=== PATIENT | female | born 1955 | race Caucasian/White ===

== ENCOUNTER 2017-02-02 15:40 | Inpatient (IN) | payer MEDICAID ==
[~2017-02-02] VITALS: Ht 170.2 cm; Wt 121.6 kg
[~2017-02-02 15:40] MED LIST: ALBU8.5H8 INH; ASPI-1009 PO; ATOR20TA66 PO; CLOB50SO2; ESCI20TA38 PO; FENO160T13 PO; FLUO15CR TOP; GABA-338 PO; INSU100I25 SQ; LEVO150T PO; LISI-604 PO; NORepinephrine 1 mg/ml inj IV ONE; SITA1TAB2 PO
[2017-02-02] MEDS ORDERED: levoFLOXACIN-Levaquin 750MG/D5 150 ML IV ONE (15:45)
[2017-02-02] MEDS ORDERED: normal saline 1000ML IV soln IV ONE (15:45)
[2017-02-02] MEDS ORDERED: vancomycin/NS 1 GM ADD-VANTAGE 250 ML IV ONE ×2 (15:45→17:35)
[2017-02-02 16:54] LABS: BASOPHILS % (AUTO) 0 % (0-1); EOSINOPHILS % (AUTO) 0.1 % (0-6); HEMATOCRIT 45.8 % (35.0-45.0); HEMOGLOBIN 15.6 g/dl (12.0-16.0); LYMPHOCYTES # (AUTO) 1.2 X10'3 (1.1-4.8); LYMPHOCYTES % (AUTO) 4.4 % (21-51); MEAN CORPUSCULAR HGB CONC 33.9 % (33.0-36.5); MEAN CORPUSCULAR VOLUME 97.1 FL (78-98); MEAN PLATELET VOLUME 8.1 FL (7.4-10.4); MONOCYTES # (AUTO) 3.2 X10'3 (0-0.9); MONOCYTES % (AUTO) 11.4 % (2-12); NEUTROPHILS # (AUTO) 24.1 X10'3 (1.8-7.7); NEUTROPHILS % (AUTO) 84.1 % (42-75); PLATELET COUNT 288 X10'3 (140-440); RED BLOOD COUNT 4.72 X10'6 (4.20-5.60); RED CELL DISTRIBUTION WIDTH 13.8 % (11.5-14.5)
[2017-02-02 17:00] LABS: INR 1.1 INR; PARTIAL THROMBOPLASTIN TIME 27 SECONDS (22-32); PROTHROMBIN TIME 11.1 SECONDS (9.0-12.0)
[2017-02-02 17:01] LABS: WHITE BLOOD COUNT 28.6 X10'3 (4.5-11.0)
[2017-02-02 17:08] LABS: URINE AMPHETAMINE SCREEN POSITIVE (Neg); URINE BARBITUATE SCREEN NEGATIVE (Neg); URINE BENZODIAZEPINES SCREEN POSITIVE (Neg); URINE CANNABINOID SCREEN POSITIVE (Neg); URINE COCAINE SCREEN NEGATIVE (Neg); URINE METHADONE SCREEN NEGATIVE (Neg); URINE OPIATE SCREEN NEGATIVE (Neg); URINE PHENCYCLIDINE SCREEN NEGATIVE (Neg)
[2017-02-02 17:10] LABS: GLUCOSE, URINE NEGATIVE (Neg); KETONES,URINE TRACE mg/dl (Neg); LEUKOCYTE ESTERASE ,URINE LARGE (Neg); NITRITES, URINE POSITIVE (Neg); OCCULT BLOOD,URINE LARGE (Neg); PH,URINE >=9.0 (4.8-8.0); PROTEIN,URINE 100 mg/dl (Neg)
[2017-02-02 17:11] LABS: UA COLLECTION TYPE NON-SPECIFIED
[2017-02-02 17:17] LABS: BACTERIA,URINE 4+ /HPF (Neg); RBC,URINE TNTC /HPF (0-2); SQUAMOUS EPITHELIAL CELL,UR NONE SEEN /LPF (FEW)
[2017-02-02 17:19] LABS: CLARITY,URINE CLOUDY (Clear); COLOR,URINE Amber (Yellow)
[2017-02-02 17:20] LABS: ALANINE AMINOTRANSFERASE 34 U/L (12-78); ALBUMIN 2.9 G/DL (3.4-5.0); ALBUMIN/GLOBULIN RATIO 0.6 (1.1-1.5); ALKALINE PHOSPHATASE 47 IU/L (46-116); ANION GAP 14 (8-16); ASPARTATE AMINO TRANSFERASE 49 U/L (10-37); BILIRUBIN,TOTAL 0.9 MG/DL (0.1-1.0); BLOOD UREA NITROGEN 53 MG/DL (7-18); BUN/CREATININE RATIO 13.7 (6.6-38.0); CALCIUM 8.6 MG/DL (8.5-10.1); CHLORIDE 95 MMOL/L (99-107); CREATININE 3.86 MG/DL (0.40-0.90); GLUCOSE 223 MG/DL (70-104); MAGNESIUM 1.4 MG/DL (1.5-2.4); PHOSPHORUS 4.8 MG/DL (2.3-4.5); SODIUM 129 MMOL/L (135-145); TOTAL PROTEIN 7.7 G/DL (6.4-8.2); eGFR 12 ML/MIN
[2017-02-02 17:26] LABS: POTASSIUM 6.6 MMOL/L (3.5-5.1)
[2017-02-02] MEDS ORDERED: magnesium 2GM in 50ml NS 50 ML IV ONE (17:35)
[2017-02-02] MEDS: K, MAG and/or Phos replacement - Verify level? MC SCH (18:05)
[2017-02-02] MEDS ORDERED: MESSAGE TO PHARMACY PO ONE (18:05)
[2017-02-02] MEDS ORDERED: vancomycin/NS 1 GM ADD-VANTAGE 250 ML IV SCH (18:05)
[2017-02-02] MEDS ORDERED: magnesium hydroxide 30ml (MOM) UD suspension PO PRN (18:05)
[2017-02-02] MEDS ORDERED: dextrose ORAL solution 15 GM/59 ML bottle PO PRN ×2 (18:05)
[2017-02-02] MEDS ORDERED: glucagon, human recombinant 1mg kit SUBCUT PRN (18:05)
[2017-02-02] MEDS ORDERED: ondansetron/PF 4mg/2ml inj IV PRN (18:05)
[2017-02-02] MEDS ORDERED: sodium phosphate inj. 15 MMOL in dextrose 5%-water 150 ML IV PRN (18:05)
[2017-02-02] MEDS ORDERED: sodium phosphate inj. 30 MMOL in dextrose 5%-water 250 ML IV PRN (18:05)
[2017-02-02] MEDS ORDERED: potassium Cl 20 mEq SR tablet PO PRN (18:05)
[2017-02-02] MEDS ORDERED: magnesium 4gm in 100ml NS 100 ML IV PRN (18:05)
[2017-02-02] MEDS ORDERED: dextrose 50%-water 50ml dispensing syringe IV PRN ×2 (18:05)
[2017-02-02] MEDS ORDERED: magnesium 2GM in 50ml NS 50 ML IV PRN (18:05)
[2017-02-02] MEDS ORDERED: Neutra Phos packet PO PRN (18:05)
[2017-02-02] MEDS ORDERED: magnesium Cl slow-release 64mg tablet PO PRN (18:05)
[2017-02-02 18:51] LABS: HEMOGLOBIN A1C 7.2 % (4.5-6.2)
[2017-02-02] MEDS ORDERED: NORepinephrine 8mg/ 250ml NS 250 ML IV SCH (18:55)
[2017-02-02] MEDS ORDERED: vancomycin/NS 1 GM ADD-VANTAGE 250 ML X 1 DOSE IV ONE (19:00)
[2017-02-02] MEDS: NORepinephrine 8mg/ 250ml NS 250 ML IV SCH (19:04)
[2017-02-02] MEDS: piperacillin/tazobactam inj. 2.25 GM in normal saline 50ml IV IV SCH ×2 (19:14→23:45)
[2017-02-02] MEDS: sodium bicarbonate (8.4%) inj. 100 MEQ in dextrose 5%-water 1,000 ML IV SCH (19:19)
[2017-02-02 20:00] VITALS: BP 105/50
[2017-02-02] MEDS ORDERED: Insulin Detemir pen SQ SCH (20:00)
[2017-02-02 21:00] VITALS: BP 101/54
[2017-02-02] MEDS: Insulin Detemir pen SQ SCH (21:00)
[2017-02-02] MEDS: atorvastatin 20mg tablet PO SCH (21:00)
[2017-02-02 21:21] LABS: OXYGEN SATURATION (MIXED VEN) 79.8 % (60-80); PO2 MIXED VENOUS (TEMP COR) 53.3 mmHg (35-46)
[2017-02-02 21:36] LABS: ABG BASE EXCESS -9.5 mmol/L (-2.0-3.0); ABG HCO3 17.5 mmol/L (22.0-26.0); ABG OXYGEN SATURATION 94.8 % (95-98); ABG PCO2 (T) 43.8 mmHg (32.0-45.0); ABG PH (T) 7.225 (7.350-7.450); ABG PO2 (T) 90.9 mmHg (83-108); FCOHb 0.7 % (0.5-1.5); FLOW 6 L/min; FMetHb 0.3 % (0.3-1.12); FO2Hb 93.9 % (94-100); PATIENT TEMPERATURE 38.1; RESPIRATORY RATE (OBSERVED) 16 b/min; TOTAL HEMOGLOBIN 13.7 G/dl (12.0-16.0)
[2017-02-02 22:00] VITALS: BP 100/57
[2017-02-02 23:00] VITALS: BP 97/51
[2017-02-02] MEDS ORDERED: albuterol 2.5 MG/3 ML nebule NEB PRN (23:50)
[2017-02-03] VITALS (23 sets, daily range): BP systolic 84–119; BP diastolic 51–63
[2017-02-03] MEDS ORDERED: piperacillin/tazo 3.375gm/50ml 50 ML IV SCH
[2017-02-03] MEDS: insulin Lispro (HumaLOG) vial - multi-dose SQ SCH ×5 (01:49→21:16)
[2017-02-03] MEDS ORDERED: acetaminophen 650mg rectal suppository RC PRN (02:05)
[2017-02-03] MEDS: sodium bicarbonate (8.4%) inj. 100 MEQ in dextrose 5%-water 1,000 ML IV SCH ×4 (02:24→23:16)
[2017-02-03 03:48] LABS: BASOPHILS # (AUTO) 0.1 X10'3 (0-0.2); BASOPHILS % (AUTO) 0.3 % (0-1); EOSINOPHILS % (AUTO) 0.2 % (0-6); HEMATOCRIT 40.6 % (35.0-45.0); HEMOGLOBIN 13.6 g/dl (12.0-16.0); LYMPHOCYTES # (AUTO) 0.8 X10'3 (1.1-4.8); LYMPHOCYTES % (AUTO) 3.7 % (21-51); MEAN CORPUSCULAR HEMOGLOBIN 33.4 PG (27.0-31.0); MEAN CORPUSCULAR HGB CONC 33.4 % (33.0-36.5); MEAN PLATELET VOLUME 8.1 FL (7.4-10.4); MONOCYTES # (AUTO) 0.4 X10'3 (0-0.9); MONOCYTES % (AUTO) 1.8 % (2-12); NEUTROPHILS # (AUTO) 21.4 X10'3 (1.8-7.7); PLATELET COUNT 210 X10'3 (140-440); RED BLOOD COUNT 4.06 X10'6 (4.20-5.60); RED CELL DISTRIBUTION WIDTH 13.6 % (11.5-14.5); WHITE BLOOD COUNT 22.7 X10'3 (4.5-11.0)
[2017-02-03 04:00] LABS: INR 1.1 INR; PARTIAL THROMBOPLASTIN TIME 28 SECONDS (22-32); PROTHROMBIN TIME 11.7 SECONDS (9.0-12.0)
[2017-02-03 04:08] LABS: ALANINE AMINOTRANSFERASE 27 U/L (12-78); ALBUMIN 2.2 G/DL (3.4-5.0); ALBUMIN/GLOBULIN RATIO 0.5 (1.1-1.5); ALKALINE PHOSPHATASE 37 IU/L (46-116); ANION GAP 12 (8-16); ASPARTATE AMINO TRANSFERASE 49 U/L (10-37); BILIRUBIN,TOTAL 0.9 MG/DL (0.1-1.0); BLOOD UREA NITROGEN 47 MG/DL (7-18); CALCIUM 7.8 MG/DL (8.5-10.1); CHLORIDE 97 MMOL/L (99-107); CREATININE 2.93 MG/DL (0.40-0.90); GLUCOSE 305 MG/DL (70-104); POTASSIUM 4.1 MMOL/L (3.5-5.1); SODIUM 130 MMOL/L (135-145); TOTAL CARBON DIOXIDE 20.8 MMOL/L (24-32); TOTAL PROTEIN 6.4 G/DL (6.4-8.2); eGFR 16 ML/MIN
[2017-02-03 04:13] LABS: MAGNESIUM 1.7 MG/DL (1.5-2.4); PHOSPHORUS 3.9 MG/DL (2.3-4.5)
[2017-02-03 04:53] LABS: PLATELET ESTIMATE NORMAL; TOTAL CELLS COUNTED 100
[2017-02-03] MEDS: K, MAG and/or Phos replacement - Verify level? MC SCH (08:00)
[2017-02-03] MEDS: levoTHYROXINE 75mcg tablet PO SCH (08:04)
[2017-02-03] MEDS: lactobacillus rhamnosus 10,000 MMU CELLS/CAPSULE PO SCH ×2 (08:04→16:34)
[2017-02-03] MEDS: piperacillin/tazobactam inj. 2.25 GM in normal saline 50ml IV IV SCH (08:05)
[2017-02-03] MEDS: gabapentin 300mg capsule PO SCH ×2 (08:05→13:31)
[2017-02-03] MEDS: pantoprazole 40mg Tablet.DR PO SCH (08:05)
[2017-02-03] MEDS: citalopram 20mg tablet PO SCH (08:05)
[2017-02-03] MEDS: aspirin 81mg tablet.DR PO SCH (08:05)
[2017-02-03] MEDS: fenofibrate 145mg tablet PO SCH (08:06)
[2017-02-03] MEDS ORDERED: INSU100I25 SQ (08:55)
[2017-02-03] MEDS: acetaminophen 325mg tablet PO PRN ×3 (09:17→21:09)
[2017-02-03] MEDS: nystatin 500,000 unit/5ML UD oral suspension PO SCH ×2 (13:31→19:34)
[2017-02-03] MEDS: piperacillin-tazo 2.25gm/50ml 50 ML IV SCH ×2 (14:18→19:36)
[2017-02-03] MEDS: NORepinephrine 8mg/ 250ml NS 250 ML IV SCH (16:30)
[2017-02-03] MEDS: atorvastatin 20mg tablet PO SCH (19:34)
[2017-02-03] MEDS: Insulin Detemir pen SQ SCH (19:46)
[2017-02-03] MEDS: diatr meglu/diatrizoate 30ml oral sol.-(3 dose) bottle PO SCH (22:15)
[2017-02-04] VITALS (24 sets, daily range): BP systolic 91–126; BP diastolic 48–73
[2017-02-04 02:49] LABS: BASOPHILS # (AUTO) 0.1 X10'3 (0-0.2); BASOPHILS % (AUTO) 0.4 % (0-1); EOSINOPHILS % (AUTO) 0 % (0-6); HEMATOCRIT 35.8 % (35.0-45.0); HEMOGLOBIN 11.9 g/dl (12.0-16.0); LYMPHOCYTES # (AUTO) 1.2 X10'3 (1.1-4.8); LYMPHOCYTES % (AUTO) 7.4 % (21-51); MEAN CORPUSCULAR HGB CONC 33.2 % (33.0-36.5); MEAN CORPUSCULAR VOLUME 99.5 FL (78-98); MEAN PLATELET VOLUME 8.5 FL (7.4-10.4); MONOCYTES # (AUTO) 0.2 X10'3 (0-0.9); MONOCYTES % (AUTO) 0.9 % (2-12); NEUTROPHILS # (AUTO) 15.2 X10'3 (1.8-7.7); NEUTROPHILS % (AUTO) 91.3 % (42-75); PLATELET COUNT 157 X10'3 (140-440); RED CELL DISTRIBUTION WIDTH 14.1 % (11.5-14.5); WHITE BLOOD COUNT 16.7 X10'3 (4.5-11.0)
[2017-02-04] MEDS: piperacillin-tazo 2.25gm/50ml 50 ML IV SCH ×4 (03:00→20:11)
[2017-02-04 03:08] LABS: INR 1.2 INR; PARTIAL THROMBOPLASTIN TIME 31 SECONDS (22-32); PROTHROMBIN TIME 12.8 SECONDS (9.0-12.0)
[2017-02-04 03:13] LABS: ALANINE AMINOTRANSFERASE 20 U/L (12-78); ALBUMIN 1.8 G/DL (3.4-5.0); ALBUMIN/GLOBULIN RATIO 0.5 (1.1-1.5); ALKALINE PHOSPHATASE 55 IU/L (46-116); ANION GAP 9 (8-16); ASPARTATE AMINO TRANSFERASE 35 U/L (10-37); BLOOD UREA NITROGEN 43 MG/DL (7-18); BUN/CREATININE RATIO 18.9 (6.6-38.0); CALCIUM 7.7 MG/DL (8.5-10.1); CHLORIDE 92 MMOL/L (99-107); CREATININE 2.27 MG/DL (0.40-0.90); GLUCOSE 263 MG/DL (70-104); MAGNESIUM 1.5 MG/DL (1.5-2.4); PHOSPHORUS 3.6 MG/DL (2.3-4.5); POTASSIUM 3.3 MMOL/L (3.5-5.1); SODIUM 129 MMOL/L (135-145); TOTAL CARBON DIOXIDE 27.6 MMOL/L (24-32); TOTAL PROTEIN 5.7 G/DL (6.4-8.2); eGFR 22 ML/MIN
[2017-02-04] MEDS: acetaminophen 325mg tablet PO PRN ×3 (03:56→22:17)
[2017-02-04] MEDS: potassium Cl 20 mEq SR tablet PO PRN ×3 (04:42→16:59)
[2017-02-04] MEDS: diatr meglu/diatrizoate 30ml oral sol.-(3 dose) bottle PO SCH ×2 (07:14→10:10)
[2017-02-04] MEDS: sodium bicarbonate (8.4%) inj. 100 MEQ in dextrose 5%-water 1,000 ML IV SCH ×2 (07:14→14:01)
[2017-02-04] MEDS: nystatin 500,000 unit/5ML UD oral suspension PO SCH ×3 (08:00→20:14)
[2017-02-04] MEDS: K, MAG and/or Phos replacement - Verify level? MC SCH (08:00)
[2017-02-04] MEDS: NORepinephrine 8mg/ 250ml NS 250 ML IV SCH (08:26)
[2017-02-04] MEDS: insulin Lispro (HumaLOG) vial - multi-dose SQ SCH ×3 (09:21→20:17)
[2017-02-04] MEDS: lactobacillus rhamnosus 10,000 MMU CELLS/CAPSULE PO SCH ×2 (11:04→16:59)
[2017-02-04] MEDS: levoTHYROXINE 75mcg tablet PO SCH (11:04)
[2017-02-04] MEDS: aspirin 81mg tablet.DR PO SCH (11:05)
[2017-02-04] MEDS: fenofibrate 145mg tablet PO SCH (11:05)
[2017-02-04] MEDS: pantoprazole 40mg Tablet.DR PO SCH (11:05)
[2017-02-04] MEDS: gabapentin 300mg capsule PO SCH (11:05)
[2017-02-04] MEDS: citalopram 20mg tablet PO SCH (11:05)
[2017-02-04 12:45] LABS: CREATININE,URINE RANDOM 33.7 MG/DL
[2017-02-04 13:00] LABS: CLARITY,URINE SLIGHTLY CLOUDY (Clear); UA COLLECTION TYPE FOLEY CATH
[2017-02-04 13:08] LABS: GLUCOSE, URINE 500 mg/dl (Neg); KETONES,URINE NEGATIVE (Neg); LEUKOCYTE ESTERASE ,URINE MODERATE (Neg); NITRITES, URINE NEGATIVE (Neg); OCCULT BLOOD,URINE LARGE (Neg); PROTEIN,URINE 100 mg/dl (Neg); UROBILINOGEN,URINE >=8.0 E.U/dL (0.2-1.0)
[2017-02-04 13:10] LABS: COLOR,URINE DARK YELLOW (Yellow)
[2017-02-04 13:12] LABS: RBC,URINE TNTC /HPF (0-2); WBC CLUMPS,URINE FEW /HPF (NEGATIVE); WBC,URINE TNTC /HPF (0-4)
[2017-02-04 13:13] LABS: BACTERIA,URINE 2+ /HPF (Neg); SQUAMOUS EPITHELIAL CELL,UR FEW /LPF (FEW)
[2017-02-04 13:55] LABS: UA EOSINOPHILS NO EOS /HPF
[2017-02-04] MEDS: normal saline 1000ml 1,000 ML IV SCH (16:00)
[2017-02-04] MEDS: emollient combination-Eucerin 250 ML LOTION TP SCH (17:04)
[2017-02-04] MEDS: atorvastatin 20mg tablet PO SCH (20:11)
[2017-02-04] MEDS: Insulin Detemir pen SQ SCH (20:18)
[2017-02-05] VITALS (24 sets, daily range): BP systolic 74–114; BP diastolic 48–69
[2017-02-05] MEDS: normal saline 1000ml 1,000 ML IV SCH ×3 (02:10→22:14)
[2017-02-05] MEDS: piperacillin-tazo 2.25gm/50ml 50 ML IV SCH ×4 (02:10→19:03)
[2017-02-05] MEDS ORDERED: HYDROcodone/acetaminophen 5mg/325mg tablet PO PRN (02:40)
[2017-02-05 03:34] LABS: BASOPHILS # (AUTO) 0.1 X10'3 (0-0.2); BASOPHILS % (AUTO) 0.5 % (0-1); EOSINOPHILS # (AUTO) 0.1 X10'3 (0-0.9); EOSINOPHILS % (AUTO) 0.7 % (0-6); HEMATOCRIT 32.5 % (35.0-45.0); HEMOGLOBIN 11.1 g/dl (12.0-16.0); LYMPHOCYTES # (AUTO) 1.4 X10'3 (1.1-4.8); MEAN CORPUSCULAR HEMOGLOBIN 33.1 PG (27.0-31.0); MEAN CORPUSCULAR VOLUME 97.3 FL (78-98); MEAN PLATELET VOLUME 8.5 FL (7.4-10.4); MONOCYTES # (AUTO) 0.3 X10'3 (0-0.9); MONOCYTES % (AUTO) 2.4 % (2-12); NEUTROPHILS # (AUTO) 9.7 X10'3 (1.8-7.7); NEUTROPHILS % (AUTO) 84.4 % (42-75); PLATELET COUNT 130 X10'3 (140-440); RED BLOOD COUNT 3.34 X10'6 (4.20-5.60); WHITE BLOOD COUNT 11.5 X10'3 (4.5-11.0)
[2017-02-05 03:48] LABS: INR 1.1 INR; PARTIAL THROMBOPLASTIN TIME 32 SECONDS (22-32); PROTHROMBIN TIME 11.8 SECONDS (9.0-12.0)
[2017-02-05 04:00] LABS: ALANINE AMINOTRANSFERASE 18 U/L (12-78); ALBUMIN 1.5 G/DL (3.4-5.0); ALBUMIN/GLOBULIN RATIO 0.4 (1.1-1.5); ALKALINE PHOSPHATASE 62 IU/L (46-116); ANION GAP 5 (8-16); ASPARTATE AMINO TRANSFERASE 47 U/L (10-37); BILIRUBIN,TOTAL 1.5 MG/DL (0.1-1.0); BLOOD UREA NITROGEN 35 MG/DL (7-18); BUN/CREATININE RATIO 21.7 (6.6-38.0); CALCIUM 7.4 MG/DL (8.5-10.1); CHLORIDE 92 MMOL/L (99-107); CREATININE 1.61 MG/DL (0.40-0.90); GLUCOSE 119 MG/DL (70-104); MAGNESIUM 1.3 MG/DL (1.5-2.4); POTASSIUM 3.8 MMOL/L (3.5-5.1); SODIUM 128 MMOL/L (135-145); TOTAL CARBON DIOXIDE 31.2 MMOL/L (24-32); TOTAL PROTEIN 5.3 G/DL (6.4-8.2); eGFR 33 ML/MIN
[2017-02-05] MEDS: nystatin 500,000 unit/5ML UD oral suspension PO SCH ×3 (08:00→20:30)
[2017-02-05] MEDS: K, MAG and/or Phos replacement - Verify level? MC SCH (08:00)
[2017-02-05] MEDS: fenofibrate 145mg tablet PO SCH (08:13)
[2017-02-05] MEDS: lactobacillus rhamnosus 10,000 MMU CELLS/CAPSULE PO SCH ×2 (08:13→16:56)
[2017-02-05] MEDS: pantoprazole 40mg Tablet.DR PO SCH (08:13)
[2017-02-05] MEDS: aspirin 81mg tablet.DR PO SCH (08:13)
[2017-02-05] MEDS: gabapentin 300mg capsule PO SCH (08:14)
[2017-02-05] MEDS: citalopram 20mg tablet PO SCH (08:14)
[2017-02-05] MEDS: emollient combination-Eucerin 250 ML LOTION TP SCH (08:15)
[2017-02-05] MEDS: levoTHYROXINE 75mcg tablet PO SCH (08:19)
[2017-02-05] MEDS: insulin Lispro (HumaLOG) vial - multi-dose SQ SCH ×3 (09:17→18:57)
[2017-02-05] MEDS: NORepinephrine 8mg/ 250ml NS 250 ML IV SCH (16:57)
[2017-02-05] MEDS: atorvastatin 20mg tablet PO SCH (20:30)
[2017-02-05] MEDS: Insulin Detemir pen SQ SCH (20:33)
[2017-02-06] VITALS (23 sets, daily range): BP systolic 95–140; BP diastolic 58–80
[2017-02-06] MEDS: piperacillin-tazo 2.25gm/50ml 50 ML IV SCH ×2 (01:09→07:29)
[2017-02-06] MEDS: acetaminophen 325mg tablet PO PRN (01:09)
[2017-02-06 02:20] LABS: BASOPHILS % (AUTO) 0.1 % (0-1); EOSINOPHILS % (AUTO) 0.4 % (0-6); HEMATOCRIT 32.3 % (35.0-45.0); HEMOGLOBIN 10.9 g/dl (12.0-16.0); LYMPHOCYTES # (AUTO) 0.8 X10'3 (1.1-4.8); LYMPHOCYTES % (AUTO) 10.8 % (21-51); MEAN CORPUSCULAR HEMOGLOBIN 32.8 PG (27.0-31.0); MEAN CORPUSCULAR HGB CONC 33.9 % (33.0-36.5); MEAN CORPUSCULAR VOLUME 96.8 FL (78-98); MEAN PLATELET VOLUME 7.9 FL (7.4-10.4); MONOCYTES # (AUTO) 0.5 X10'3 (0-0.9); MONOCYTES % (AUTO) 6.1 % (2-12); NEUTROPHILS # (AUTO) 6.2 X10'3 (1.8-7.7); NEUTROPHILS % (AUTO) 82.6 % (42-75); PLATELET COUNT 159 X10'3 (140-440); RED BLOOD COUNT 3.34 X10'6 (4.20-5.60); RED CELL DISTRIBUTION WIDTH 14.2 % (11.5-14.5); WHITE BLOOD COUNT 7.5 X10'3 (4.5-11.0)
[2017-02-06 02:33] LABS: INR 1.1 INR; PARTIAL THROMBOPLASTIN TIME 30 SECONDS (22-32); PROTHROMBIN TIME 11.6 SECONDS (9.0-12.0)
[2017-02-06 02:35] LABS: ALANINE AMINOTRANSFERASE 21 U/L (12-78); ALBUMIN 1.5 G/DL (3.4-5.0); ALBUMIN/GLOBULIN RATIO 0.4 (1.1-1.5); ALKALINE PHOSPHATASE 81 IU/L (46-116); ANION GAP 8 (8-16); ASPARTATE AMINO TRANSFERASE 45 U/L (10-37); BILIRUBIN,TOTAL 2.5 MG/DL (0.1-1.0); BLOOD UREA NITROGEN 29 MG/DL (7-18); BUN/CREATININE RATIO 22.1 (6.6-38.0); CALCIUM 7.8 MG/DL (8.5-10.1); CHLORIDE 92 MMOL/L (99-107); CREATININE 1.31 MG/DL (0.40-0.90); GLUCOSE 154 MG/DL (70-104); MAGNESIUM 1.5 MG/DL (1.5-2.4); PHOSPHORUS 2.8 MG/DL (2.3-4.5); POTASSIUM 3.7 MMOL/L (3.5-5.1); SODIUM 129 MMOL/L (135-145); TOTAL CARBON DIOXIDE 29.4 MMOL/L (24-32); TOTAL PROTEIN 5.7 G/DL (6.4-8.2); eGFR 41 ML/MIN
[2017-02-06] MEDS: K, MAG and/or Phos replacement - Verify level? MC SCH (07:06)
[2017-02-06] MEDS: pantoprazole 40mg Tablet.DR PO SCH (07:29)
[2017-02-06] MEDS: lactobacillus rhamnosus 10,000 MMU CELLS/CAPSULE PO SCH ×2 (07:29→17:27)
[2017-02-06] MEDS: nystatin 500,000 unit/5ML UD oral suspension PO SCH ×3 (07:29→20:18)
[2017-02-06] MEDS: gabapentin 300mg capsule PO SCH (07:29)
[2017-02-06] MEDS: levoTHYROXINE 75mcg tablet PO SCH (07:30)
[2017-02-06] MEDS: citalopram 20mg tablet PO SCH (07:30)
[2017-02-06] MEDS: aspirin 81mg tablet.DR PO SCH (07:30)
[2017-02-06] MEDS: emollient combination-Eucerin 250 ML LOTION TP SCH (07:31)
[2017-02-06] MEDS: normal saline 1000ml 1,000 ML IV SCH (07:33)
[2017-02-06] MEDS: fenofibrate 145mg tablet PO SCH (08:27)
[2017-02-06] MEDS: insulin Lispro (HumaLOG) vial - multi-dose SQ SCH ×3 (08:39→19:39)
[2017-02-06] MEDS ORDERED: bisacodyl 10mg suppository rectal RC PRN (10:25)
[2017-02-06] MEDS: sodium chloride 0.45% 1,000 ML IV SCH ×2 (10:35→19:36)
[2017-02-06] MEDS ORDERED: methylnaltrexone br 12mg/0.6ml inj***SubQ only SQ ONE (12:55)
[2017-02-06] MEDS: piperacillin/tazo 3.375gm/50ml 50 ML IV SCH ×2 (13:07→19:35)
[2017-02-06] MEDS: NUT.TX.GLUC.INTOLER,LAC-FR,REG (BOOST GLUCOSE CONTROL) 237 ML PO SCH ×2 (13:09→18:00)
[2017-02-06] MEDS ORDERED: VANCOMYCIN LEVEL IV ONE (17:30)
[2017-02-06] MEDS: polyethylene glycol 3350 17gm powd pack PO SCH (20:18)
[2017-02-06] MEDS: atorvastatin 20mg tablet PO SCH (20:18)
[2017-02-06] MEDS: Insulin Detemir pen SQ SCH (21:00)
[2017-02-07] VITALS (24 sets, daily range): BP systolic 104–134; BP diastolic 56–71
[2017-02-07] MEDS: piperacillin/tazo 3.375gm/50ml 50 ML IV SCH ×4 (01:29→20:15)
[2017-02-07] MEDS: sodium chloride 0.45% 1,000 ML IV SCH ×2 (01:30→10:06)
[2017-02-07 02:26] LABS: BASOPHILS % (AUTO) 0.1 % (0-1); EOSINOPHILS # (AUTO) 0.2 X10'3 (0-0.9); LYMPHOCYTES # (AUTO) 1.1 X10'3 (1.1-4.8); LYMPHOCYTES % (AUTO) 14.4 % (21-51); MEAN CORPUSCULAR HEMOGLOBIN 32.3 PG (27.0-31.0); MEAN CORPUSCULAR HGB CONC 33.4 % (33.0-36.5); MEAN CORPUSCULAR VOLUME 96.8 FL (78-98); MEAN PLATELET VOLUME 8.1 FL (7.4-10.4); MONOCYTES # (AUTO) 0.8 X10'3 (0-0.9); MONOCYTES % (AUTO) 10.6 % (2-12); NEUTROPHILS # (AUTO) 5.8 X10'3 (1.8-7.7); NEUTROPHILS % (AUTO) 72.9 % (42-75); PLATELET COUNT 172 X10'3 (140-440); RED BLOOD COUNT 3.41 X10'6 (4.20-5.60); WHITE BLOOD COUNT 7.9 X10'3 (4.5-11.0)
[2017-02-07 02:39] LABS: INR 1.2 INR; PARTIAL THROMBOPLASTIN TIME 29 SECONDS (22-32); PROTHROMBIN TIME 12.4 SECONDS (9.0-12.0)
[2017-02-07 02:42] LABS: ALANINE AMINOTRANSFERASE 18 U/L (12-78); ALBUMIN 1.4 G/DL (3.4-5.0); ALBUMIN/GLOBULIN RATIO 0.3 (1.1-1.5); ALKALINE PHOSPHATASE 92 IU/L (46-116); ANION GAP 4 (8-16); ASPARTATE AMINO TRANSFERASE 37 U/L (10-37); BILIRUBIN,TOTAL 3.1 MG/DL (0.1-1.0); BLOOD UREA NITROGEN 20 MG/DL (7-18); BUN/CREATININE RATIO 17.7 (6.6-38.0); CHLORIDE 94 MMOL/L (99-107); CREATININE 1.13 MG/DL (0.40-0.90); GLUCOSE 165 MG/DL (70-104); MAGNESIUM 1.5 MG/DL (1.5-2.4); PHOSPHORUS 2.4 MG/DL (2.3-4.5); POTASSIUM 3.6 MMOL/L (3.5-5.1); SODIUM 127 MMOL/L (135-145); TOTAL CARBON DIOXIDE 29.1 MMOL/L (24-32); TOTAL PROTEIN 5.5 G/DL (6.4-8.2); eGFR 49 ML/MIN
[2017-02-07] MEDS: NORepinephrine 8mg/ 250ml NS 250 ML IV SCH (02:56)
[2017-02-07] MEDS: K, MAG and/or Phos replacement - Verify level? MC SCH (07:16)
[2017-02-07] MEDS: gabapentin 300mg capsule PO SCH (07:47)
[2017-02-07] MEDS: aspirin 81mg tablet.DR PO SCH (07:47)
[2017-02-07] MEDS: citalopram 20mg tablet PO SCH (07:47)
[2017-02-07] MEDS: nystatin 500,000 unit/5ML UD oral suspension PO SCH ×3 (07:47→20:15)
[2017-02-07] MEDS: lactobacillus rhamnosus 10,000 MMU CELLS/CAPSULE PO SCH ×2 (07:47→16:57)
[2017-02-07] MEDS: pantoprazole 40mg Tablet.DR PO SCH (07:47)
[2017-02-07] MEDS: levoTHYROXINE 75mcg tablet PO SCH (07:47)
[2017-02-07] MEDS: fenofibrate 145mg tablet PO SCH (07:47)
[2017-02-07] MEDS: emollient combination-Eucerin 250 ML LOTION TP SCH (07:48)
[2017-02-07] MEDS: NUT.TX.GLUC.INTOLER,LAC-FR,REG (BOOST GLUCOSE CONTROL) 237 ML PO SCH ×3 (08:00→18:00)
[2017-02-07] MEDS: insulin Lispro (HumaLOG) vial - multi-dose SQ SCH ×3 (09:14→20:22)
[2017-02-07] MEDS: normal saline 1000ml 1,000 ML IV SCH (13:20)
[2017-02-07] MEDS: atorvastatin 20mg tablet PO SCH (20:15)
[2017-02-07] MEDS: polyethylene glycol 3350 17gm powd pack PO SCH (20:15)
[2017-02-07] MEDS: Insulin Detemir pen SQ SCH (20:22)
[2017-02-08] VITALS (11 sets, daily range): BP systolic 102–131; BP diastolic 53–75
[2017-02-08] MEDS: normal saline 1000ml 1,000 ML IV SCH ×3 (00:02→19:10)
[2017-02-08] MEDS: piperacillin/tazo 3.375gm/50ml 50 ML IV SCH ×4 (02:07→20:31)
[2017-02-08 02:32] LABS: BASOPHILS % (AUTO) 0.4 % (0-1); EOSINOPHILS # (AUTO) 0.2 X10'3 (0-0.9); EOSINOPHILS % (AUTO) 2.3 % (0-6); HEMATOCRIT 32.6 % (35.0-45.0); HEMOGLOBIN 10.9 g/dl (12.0-16.0); LYMPHOCYTES # (AUTO) 1.3 X10'3 (1.1-4.8); LYMPHOCYTES % (AUTO) 14.1 % (21-51); MEAN CORPUSCULAR HEMOGLOBIN 32.7 PG (27.0-31.0); MEAN CORPUSCULAR HGB CONC 33.6 % (33.0-36.5); MEAN CORPUSCULAR VOLUME 97.3 FL (78-98); MEAN PLATELET VOLUME 7.8 FL (7.4-10.4); MONOCYTES # (AUTO) 1.1 X10'3 (0-0.9); MONOCYTES % (AUTO) 11.2 % (2-12); NEUTROPHILS # (AUTO) 6.7 X10'3 (1.8-7.7); PLATELET COUNT 196 X10'3 (140-440); RED BLOOD COUNT 3.35 X10'6 (4.20-5.60); RED CELL DISTRIBUTION WIDTH 13.9 % (11.5-14.5); WHITE BLOOD COUNT 9.4 X10'3 (4.5-11.0)
[2017-02-08 02:45] LABS: INR 1.2 INR; PARTIAL THROMBOPLASTIN TIME 27 SECONDS (22-32); PROTHROMBIN TIME 12.6 SECONDS (9.0-12.0)
[2017-02-08 02:57] LABS: ALANINE AMINOTRANSFERASE 19 U/L (12-78); ALBUMIN 1.4 G/DL (3.4-5.0); ALBUMIN/GLOBULIN RATIO 0.3 (1.1-1.5); ALKALINE PHOSPHATASE 96 IU/L (46-116); ANION GAP 4 (8-16); ASPARTATE AMINO TRANSFERASE 43 U/L (10-37); BILIRUBIN,TOTAL 2.7 MG/DL (0.1-1.0); BLOOD UREA NITROGEN 18 MG/DL (7-18); BUN/CREATININE RATIO 18.8 (6.6-38.0); CALCIUM 8.1 MG/DL (8.5-10.1); CHLORIDE 96 MMOL/L (99-107); CREATININE 0.96 MG/DL (0.40-0.90); GLUCOSE 108 MG/DL (70-104); MAGNESIUM 1.4 MG/DL (1.5-2.4); PHOSPHORUS 2.2 MG/DL (2.3-4.5); POTASSIUM 3.7 MMOL/L (3.5-5.1); SODIUM 130 MMOL/L (135-145); TOTAL CARBON DIOXIDE 29.7 MMOL/L (24-32); TOTAL PROTEIN 5.5 G/DL (6.4-8.2); eGFR 59 ML/MIN
[2017-02-08] MEDS: lactobacillus rhamnosus 10,000 MMU CELLS/CAPSULE PO SCH ×2 (07:13→17:04)
[2017-02-08] MEDS: levoTHYROXINE 75mcg tablet PO SCH (07:13)
[2017-02-08] MEDS: NUT.TX.GLUC.INTOLER,LAC-FR,REG (BOOST GLUCOSE CONTROL) 237 ML PO SCH ×3 (08:00→18:00)
[2017-02-08] MEDS ORDERED: potassium Cl 40MEQ/NS 500ml 500 ML IV PRN ×2 (08:35)
[2017-02-08] MEDS ORDERED: magnesium 4gm in 100ml NS 100 ML IV PRN (08:35)
[2017-02-08] MEDS ORDERED: magnesium 2GM in 50ml NS 50 ML IV PRN (08:35)
[2017-02-08] MEDS: aspirin 81mg tablet.DR PO SCH (08:39)
[2017-02-08] MEDS: pantoprazole 40mg Tablet.DR PO SCH (08:39)
[2017-02-08] MEDS: gabapentin 300mg capsule PO SCH (08:39)
[2017-02-08] MEDS: citalopram 20mg tablet PO SCH (08:39)
[2017-02-08] MEDS: nystatin 500,000 unit/5ML UD oral suspension PO SCH ×3 (08:39→20:31)
[2017-02-08] MEDS: fenofibrate 145mg tablet PO SCH (08:39)
[2017-02-08] MEDS: insulin Lispro (HumaLOG) vial - multi-dose SQ SCH ×2 (09:05→19:08)
[2017-02-08] MEDS: K, MAG and/or Phos replacement - Verify level? MC SCH (09:10)
[2017-02-08] MEDS: methylnaltrexone br 12mg/0.6ml inj***SubQ only SQ SCH (10:02)
[2017-02-08] MEDS: magnesium Cl slow-release 64mg tablet PO PRN (10:07)
[2017-02-08] MEDS: emollient combination-Eucerin 250 ML LOTION TP SCH (11:45)
[2017-02-08] MEDS: atorvastatin 20mg tablet PO SCH (20:31)
[2017-02-08] MEDS: polyethylene glycol 3350 17gm powd pack PO SCH (20:31)
[2017-02-08] MEDS: Insulin Detemir pen SQ SCH (21:52)
[2017-02-09] MEDS: piperacillin/tazo 3.375gm/50ml 50 ML IV SCH ×4 (01:56→20:28)
[2017-02-09 03:00] VITALS: BP 124/69
[2017-02-09 03:24] LABS: BASOPHILS % (AUTO) 0.1 % (0-1); EOSINOPHILS # (AUTO) 0.3 X10'3 (0-0.9); EOSINOPHILS % (AUTO) 2.4 % (0-6); HEMATOCRIT 32.1 % (35.0-45.0); HEMOGLOBIN 10.4 g/dl (12.0-16.0); LYMPHOCYTES # (AUTO) 1.4 X10'3 (1.1-4.8); MEAN CORPUSCULAR HEMOGLOBIN 31.5 PG (27.0-31.0); MEAN CORPUSCULAR HGB CONC 32.3 % (33.0-36.5); MEAN CORPUSCULAR VOLUME 97.3 FL (78-98); MONOCYTES # (AUTO) 0.6 X10'3 (0-0.9); MONOCYTES % (AUTO) 5.3 % (2-12); NEUTROPHILS # (AUTO) 8.8 X10'3 (1.8-7.7); NEUTROPHILS % (AUTO) 79.2 % (42-75); PLATELET COUNT 207 X10'3 (140-440); WHITE BLOOD COUNT 11.1 X10'3 (4.5-11.0)
[2017-02-09 03:35] LABS: INR 1.1 INR; PARTIAL THROMBOPLASTIN TIME 26 SECONDS (22-32); PROTHROMBIN TIME 11.8 SECONDS (9.0-12.0)
[2017-02-09 03:39] LABS: ALANINE AMINOTRANSFERASE 12 U/L (12-78); ALBUMIN 1.4 G/DL (3.4-5.0); ALBUMIN/GLOBULIN RATIO 0.4 (1.1-1.5); ALKALINE PHOSPHATASE 88 IU/L (46-116); ANION GAP 1 (8-16); ASPARTATE AMINO TRANSFERASE 27 U/L (10-37); BILIRUBIN,TOTAL 1.9 MG/DL (0.1-1.0); BLOOD UREA NITROGEN 16 MG/DL (7-18); BUN/CREATININE RATIO 18.8 (6.6-38.0); CALCIUM 8.4 MG/DL (8.5-10.1); CHLORIDE 101 MMOL/L (99-107); CREATININE 0.85 MG/DL (0.40-0.90); GLUCOSE 111 MG/DL (70-104); MAGNESIUM 1.5 MG/DL (1.5-2.4); PHOSPHORUS 2.8 MG/DL (2.3-4.5); POTASSIUM 3.9 MMOL/L (3.5-5.1); SODIUM 135 MMOL/L (135-145); TOTAL CARBON DIOXIDE 32.9 MMOL/L (24-32); TOTAL PROTEIN 5.4 G/DL (6.4-8.2); eGFR 68 ML/MIN
[2017-02-09] MEDS: normal saline 1000ml 1,000 ML IV SCH ×2 (04:21→13:14)
[2017-02-09 06:00] VITALS: BP 109/70
[2017-02-09] MEDS: levoTHYROXINE 75mcg tablet PO SCH (07:15)
[2017-02-09] MEDS: gabapentin 300mg capsule PO SCH (07:15)
[2017-02-09] MEDS: aspirin 81mg tablet.DR PO SCH (07:15)
[2017-02-09] MEDS: citalopram 20mg tablet PO SCH (07:15)
[2017-02-09] MEDS: lactobacillus rhamnosus 10,000 MMU CELLS/CAPSULE PO SCH (07:15)
[2017-02-09] MEDS: pantoprazole 40mg Tablet.DR PO SCH (07:15)
[2017-02-09] MEDS: nystatin 500,000 unit/5ML UD oral suspension PO SCH ×3 (07:15→20:28)
[2017-02-09] MEDS: K, MAG and/or Phos replacement - Verify level? MC SCH (07:25)
[2017-02-09] MEDS: NUT.TX.GLUC.INTOLER,LAC-FR,REG (BOOST GLUCOSE CONTROL) 237 ML PO SCH ×3 (08:00→18:00)
[2017-02-09] MEDS: fenofibrate 145mg tablet PO SCH (08:47)
[2017-02-09] MEDS: emollient combination-Eucerin 250 ML LOTION TP SCH (08:47)
[2017-02-09] MEDS: insulin Lispro (HumaLOG) vial - multi-dose SQ SCH ×3 (08:54→19:11)
[2017-02-09 11:00] VITALS: BP 110/64
[2017-02-09 15:00] VITALS: BP 123/58
[2017-02-09 19:00] VITALS: BP 133/70
[2017-02-09] MEDS: polyethylene glycol 3350 17gm powd pack PO SCH (20:28)
[2017-02-09] MEDS: atorvastatin 20mg tablet PO SCH (20:28)
[2017-02-09] MEDS: Insulin Detemir pen SQ SCH (21:38)
[2017-02-09 23:00] VITALS: BP 141/74
[2017-02-10] MEDS: normal saline 1000ml 1,000 ML IV SCH ×3 (00:14→21:08)
[2017-02-10] MEDS: piperacillin/tazo 3.375gm/50ml 50 ML IV SCH ×4 (02:08→21:07)
[2017-02-10 03:00] VITALS: BP 136/63
[2017-02-10 06:00] VITALS: BP 140/68
[2017-02-10 06:38] LABS: BASOPHILS % (AUTO) 0.1 % (0-1); EOSINOPHILS # (AUTO) 0.4 X10'3 (0-0.9); HEMATOCRIT 34.7 % (35.0-45.0); HEMOGLOBIN 11.4 g/dl (12.0-16.0); LYMPHOCYTES # (AUTO) 1.9 X10'3 (1.1-4.8); LYMPHOCYTES % (AUTO) 13.1 % (21-51); MEAN CORPUSCULAR HEMOGLOBIN 32.4 PG (27.0-31.0); MEAN CORPUSCULAR HGB CONC 32.9 % (33.0-36.5); MEAN CORPUSCULAR VOLUME 98.5 FL (78-98); MEAN PLATELET VOLUME 8.5 FL (7.4-10.4); MONOCYTES # (AUTO) 0.6 X10'3 (0-0.9); MONOCYTES % (AUTO) 4.4 % (2-12); NEUTROPHILS # (AUTO) 11.3 X10'3 (1.8-7.7); NEUTROPHILS % (AUTO) 79.4 % (42-75); PLATELET COUNT 228 X10'3 (140-440); RED BLOOD COUNT 3.53 X10'6 (4.20-5.60); RED CELL DISTRIBUTION WIDTH 14.7 % (11.5-14.5); WHITE BLOOD COUNT 14.3 X10'3 (4.5-11.0)
[2017-02-10 07:10] LABS: INR 1.1 INR; PARTIAL THROMBOPLASTIN TIME 25 SECONDS (22-32); PROTHROMBIN TIME 11.4 SECONDS (9.0-12.0)
[2017-02-10] MEDS: gabapentin 300mg capsule PO SCH (07:23)
[2017-02-10] MEDS: citalopram 20mg tablet PO SCH (07:23)
[2017-02-10] MEDS: levoTHYROXINE 75mcg tablet PO SCH (07:24)
[2017-02-10] MEDS: aspirin 81mg tablet.DR PO SCH (07:24)
[2017-02-10] MEDS: methylnaltrexone br 12mg/0.6ml inj***SubQ only SQ SCH (07:24)
[2017-02-10] MEDS: nystatin 500,000 unit/5ML UD oral suspension PO SCH ×3 (07:24→21:07)
[2017-02-10] MEDS: LACTOBACILLUS RHAMNOSUS GG 15 billion unit sprinkle caps PO SCH (07:24)
[2017-02-10] MEDS: pantoprazole 40mg Tablet.DR PO SCH (07:24)
[2017-02-10] MEDS: emollient combination-Eucerin 250 ML LOTION TP SCH (07:32)
[2017-02-10 07:54] LABS: ALANINE AMINOTRANSFERASE 18 U/L (12-78); ALBUMIN 1.6 G/DL (3.4-5.0); ALBUMIN/GLOBULIN RATIO 0.4 (1.1-1.5); ALKALINE PHOSPHATASE 93 IU/L (46-116); ANION GAP 7 (8-16); ASPARTATE AMINO TRANSFERASE 29 U/L (10-37); BILIRUBIN,TOTAL 1.5 MG/DL (0.1-1.0); BLOOD UREA NITROGEN 14 MG/DL (7-18); BUN/CREATININE RATIO 19.4 (6.6-38.0); CALCIUM 8.4 MG/DL (8.5-10.1); CHLORIDE 100 MMOL/L (99-107); CREATININE 0.72 MG/DL (0.40-0.90); GLUCOSE 115 MG/DL (70-104); MAGNESIUM 1.3 MG/DL (1.5-2.4); PHOSPHORUS 2.8 MG/DL (2.3-4.5); POTASSIUM 4.2 MMOL/L (3.5-5.1); SODIUM 136 MMOL/L (135-145); TOTAL CARBON DIOXIDE 29.2 MMOL/L (24-32); eGFR 83 ML/MIN
[2017-02-10] MEDS: NUT.TX.GLUC.INTOLER,LAC-FR,REG (BOOST GLUCOSE CONTROL) 237 ML PO SCH ×3 (08:24→18:36)
[2017-02-10] MEDS: fenofibrate 145mg tablet PO SCH (08:27)
[2017-02-10] MEDS: K, MAG and/or Phos replacement - Verify level? MC SCH (08:39)
[2017-02-10] MEDS: insulin Lispro (HumaLOG) vial - multi-dose SQ SCH (09:03)
[2017-02-10] MEDS: magnesium Cl slow-release 64mg tablet PO PRN (09:27)
[2017-02-10 11:00] VITALS: BP 146/76
[2017-02-10 15:00] VITALS: BP 124/72
[2017-02-10] MEDS ORDERED: FURO20TA4 PO (15:20)
[2017-02-10] MEDS ORDERED: SPIR25TA3 PO (15:20)
[2017-02-10 19:00] VITALS: BP 166/85
[2017-02-10] MEDS: polyethylene glycol 3350 17gm powd pack PO SCH (21:07)
[2017-02-10] MEDS: atorvastatin 20mg tablet PO SCH (21:07)
[2017-02-10] MEDS: spironolactone 25 MG tablet PO SCH (21:07)
[2017-02-10] MEDS: furosemide 20MG tablet PO SCH (21:07)
[2017-02-10] MEDS: Insulin Detemir pen SQ SCH (21:35)
[2017-02-10 23:00] VITALS: BP 158/77
[2017-02-11] MEDS: piperacillin/tazo 3.375gm/50ml 50 ML IV SCH ×2 (02:02→10:02)
[2017-02-11 03:00] VITALS: BP 153/64
[2017-02-11 06:00] VITALS: BP 133/75
[2017-02-11] MEDS: normal saline 1000ml 1,000 ML IV SCH (06:20)
[2017-02-11] MEDS: pantoprazole 40mg Tablet.DR PO SCH (07:35)
[2017-02-11] MEDS: LACTOBACILLUS RHAMNOSUS GG 15 billion unit sprinkle caps PO SCH (07:35)
[2017-02-11] MEDS: furosemide 20MG tablet PO SCH (07:36)
[2017-02-11] MEDS: nystatin 500,000 unit/5ML UD oral suspension PO SCH ×2 (07:36→07:43)
[2017-02-11] MEDS: citalopram 20mg tablet PO SCH (07:36)
[2017-02-11] MEDS: spironolactone 25 MG tablet PO SCH (07:36)
[2017-02-11] MEDS: fenofibrate 145mg tablet PO SCH (07:36)
[2017-02-11] MEDS: levoTHYROXINE 75mcg tablet PO SCH (07:36)
[2017-02-11] MEDS: gabapentin 300mg capsule PO SCH (07:36)
[2017-02-11] MEDS: aspirin 81mg tablet.DR PO SCH (07:36)
[2017-02-11] MEDS: K, MAG and/or Phos replacement - Verify level? MC SCH (07:37)
[2017-02-11] MEDS: emollient combination-Eucerin 250 ML LOTION TP SCH (07:37)
[2017-02-11] MEDS: NUT.TX.GLUC.INTOLER,LAC-FR,REG (BOOST GLUCOSE CONTROL) 237 ML PO SCH (08:09)
[2017-02-11] MEDS: insulin Lispro (HumaLOG) vial - multi-dose SQ SCH (09:03)
== END 2017-02-11 12:38 | disposition home health service (06) | DRG 720 ==
LOC: ER 15:40 → ED HOLD 18:03 → CICU 2S 19:45 → PCU 3S 02-08 05:45 → ORTHO 4S 02-11 06:00
PROVIDERS: ADMIT Internal Medicine Critical Care Medicine; ATTEND Internal Medicine Critical Care Medicine
PROC: 02HV33Z Insertion of Infusion Device into Superior Vena Cava, Percutaneous Approach (ICD-10-PCS; principal; 2017-02-03)
DX: A41.9 Sepsis, unspecified organism (principal); R65.21 Severe sepsis with septic shock; G93.49 Other encephalopathy; L89.159 Pressure ulcer of sacral region, unspecified stage; N17.9 Acute kidney failure, unspecified; J18.9 Pneumonia, unspecified organism; N18.6 End stage renal disease; L89.309 Pressure ulcer of unspecified buttock, unspecified stage; E11.42 Type 2 diabetes mellitus with diabetic polyneuropathy; E11.40 Type 2 diabetes mellitus with diabetic neuropathy, unspecified; K72.90 Hepatic failure, unspecified without coma; E87.5 Hyperkalemia; N39.0 Urinary tract infection, site not specified; E87.1 Hypo-osmolality and hyponatremia; N31.9 Neuromuscular dysfunction of bladder, unspecified; F15.90 Other stimulant use, unspecified, uncomplicated; E03.9 Hypothyroidism, unspecified; E11.49 Type 2 diabetes mellitus with other diabetic neurological complication; E66.9 Obesity, unspecified; E78.5 Hyperlipidemia, unspecified; F17.210 Nicotine dependence, cigarettes, uncomplicated; B95.8 Unspecified staphylococcus as the cause of diseases classified elsewhere; B96.20 Unspecified Escherichia coli [E. coli] as the cause of diseases classified elsewhere; G47.30 Sleep apnea, unspecified; Z16.11 Resistance to penicillins; Z82.0 Family history of epilepsy and other diseases of the nervous system; Z99.81 Dependence on supplemental oxygen; T83.031A Leakage of indwelling urethral catheter, initial encounter; Y73.8 Miscellaneous gastroenterology and urology devices associated with adverse incidents, not elsewhere classified; F32.9 Major depressive disorder, single episode, unspecified; G62.9 Polyneuropathy, unspecified; Z98.51 Tubal ligation status; Z68.41 Body mass index [BMI] 40.0-44.9, adult; Z88.8 Allergy status to other drugs, medicaments and biological substances; Z91.040 Latex allergy status
CPT/HCPCS: 36415; 36556; 36600; 71010; 74176; 80053; 80305; 81001; 82140; 82570; 82803; 82810; 82948; 83036; 83605; 83735; 84100; 84145; 84300; 84439; 84443; 84484; 85018; 85025; 85610; 85730; 87040; 87070; 87077; 87088; 87186; 87207; 87502; 87503; 93005; 94760; 96365; 96366; 96368; 97110; 97162; 97530; 99291; A4353; A4649; A6209; A6212; A6213; A6257; A6258; A6449; C1751; C1758; J1956; J2212; J2270; J2543; J3370; J7030; Q9963

== ENCOUNTER 2017-06-04 22:35 | Emergency (ER) | payer MEDICAID ==
[~2017-06-04] VITALS: Ht 165.1 cm; Wt 90.9 kg
[~2017-06-04 22:35] MED LIST changes: +ALBU8.5H8 IH; -ALBU8.5H8 INH; +CEFU250T95 PO; +FURO-149 PO; -NORepinephrine 1 mg/ml inj IV ONE; -SITA1TAB2 PO; +SPIR50TA3 PO
[2017-06-04] MEDS ORDERED: ibuprofen 200mg tablet PO ONE (22:50)
[2017-06-04] MEDS ORDERED: normal saline 1000ml 1,000 ML IV ONE (23:00)
[2017-06-04] MEDS ORDERED: ondansetron/PF 4mg/2ml inj IV ONE ×2 (23:00→23:15)
[2017-06-04] MEDS ORDERED: morphine 4 MG/ML inj SYRINge IV ONE (23:00)
[2017-06-04 23:12] LABS: BASOPHILS % (AUTO) 0.6 % (0-1); EOSINOPHILS # (AUTO) 0.1 X10'3 (0-0.9); HEMATOCRIT 35.7 % (35.0-45.0); HEMOGLOBIN 11.9 g/dl (12.0-16.0); LYMPHOCYTES # (AUTO) 1.4 X10'3 (1.1-4.8); LYMPHOCYTES % (AUTO) 20.2 % (21-51); MEAN CORPUSCULAR HEMOGLOBIN 30.1 PG (27.0-31.0); MEAN CORPUSCULAR HGB CONC 33.4 % (33.0-36.5); MEAN CORPUSCULAR VOLUME 90.3 FL (78-98); MONOCYTES # (AUTO) 0.3 X10'3 (0-0.9); MONOCYTES % (AUTO) 4.5 % (2-12); NEUTROPHILS % (AUTO) 73.7 % (42-75); PLATELET COUNT 418 X10'3 (140-440); RED BLOOD COUNT 3.96 X10'6 (4.20-5.60); RED CELL DISTRIBUTION WIDTH 16.4 % (11.5-14.5); WHITE BLOOD COUNT 6.8 X10'3 (4.5-11.0)
[2017-06-04 23:23] LABS: INR 1.1 INR; PARTIAL THROMBOPLASTIN TIME 30 SECONDS (22-32)
[2017-06-04 23:27] LABS: ALANINE AMINOTRANSFERASE 38 U/L (12-78); ALBUMIN/GLOBULIN RATIO 0.6 (1.1-1.5); ALKALINE PHOSPHATASE 52 IU/L (46-116); ANION GAP 12 (8-16); ASPARTATE AMINO TRANSFERASE 73 U/L (10-37); BILIRUBIN,TOTAL 0.4 MG/DL (0.1-1.0); BLOOD UREA NITROGEN 31 MG/DL (7-18); BUN/CREATININE RATIO 31.3 (6.6-38.0); CALCIUM 9.3 MG/DL (8.5-10.1); CHLORIDE 98 MMOL/L (99-107); CREATININE 0.99 MG/DL (0.40-0.90); GLUCOSE 160 MG/DL (70-104); POTASSIUM 3.7 MMOL/L (3.5-5.1); SODIUM 136 MMOL/L (135-145); TOTAL CARBON DIOXIDE 26.2 MMOL/L (24-32); TOTAL PROTEIN 8.3 G/DL (6.4-8.2); eGFR 57 ML/MIN
[2017-06-05 00:15] LABS: CLARITY,URINE SLIGHTLY CLOUDY (Clear); COLOR,URINE YELLOW (Yellow); GLUCOSE, URINE NEGATIVE (Neg); KETONES,URINE NEGATIVE (Neg); LEUKOCYTE ESTERASE ,URINE SMALL (Neg); NITRITES, URINE NEGATIVE (Neg); OCCULT BLOOD,URINE NEGATIVE (Neg); PH,URINE 5.5 (4.8-8.0); PROTEIN,URINE 100 mg/dl (Neg); UROBILINOGEN,URINE 0.2 E.U/dL (0.2-1.0)
[2017-06-05 00:27] LABS: UA COLLECTION TYPE FOLEY CATH
[2017-06-05 00:28] LABS: RBC,URINE 0-2 /HPF (0-2)
[2017-06-05 00:30] LABS: AMORPHOUS URATES 4+; BACTERIA,URINE FEW /HPF (Neg); SQUAMOUS EPITHELIAL CELL,UR FEW /LPF (FEW)
[2017-06-05] MEDS ORDERED: CIPR-259 PO (01:12)
[2017-06-05 05:37] VITALS: BP 107/40
== END 2017-06-05 05:54 | disposition home or self-care (01) ==
LOC: ER 22:35
DX: N39.0 Urinary tract infection, site not specified (principal); R50.9 Fever, unspecified; E11.42 Type 2 diabetes mellitus with diabetic polyneuropathy; Z79.4 Long term (current) use of insulin; Z98.51 Tubal ligation status; Z98.890 Other specified postprocedural states; Z60.2 Problems related to living alone; Z91.040 Latex allergy status
CPT/HCPCS: 36415; 71045; 73552; 80053; 81001; 83605; 84145; 85025; 85610; 85730; 87040; 87088; 96361; 96374; 96375; 99285; J2270; J2405; J7030